=== PATIENT | male | born 1945 | race Caucasian/White ===

== ENCOUNTER 2018-07-18 07:46 | Emergency (ER) | payer MEDICARE, OTHER ==
[2018-07-18 08:22] VITALS: BP 141/67
--- NOTE | 2018-07-18 09:09 | ED ---
Lower Extremity - HPI Summary HPI Summary: 72 yr old male with the complaint of stubbed left great toe on stairs, and nail fell off. He states he had a fungal infection in the toenail and that it was not very well rooted anymore and that it was coming off to begin with. He has no other complaints. - History of Current Complaint Chief Complaint: UCLowerExtremity Stated Complaint: LEFT GREAT TOENAIL CONCERN Time Seen by Provider: 07/18/18 08:27 Pain Intensity: 3 - Allergies/Home Medications Allergies/Adverse Reactions: Allergies Allergy/AdvReac Type Severity Reaction Status Date / Time MS Influenza Virus Vaccine Allergy Severe Patient Verified 07/18/18 08:06 H5N1 states " I [Influenza Virus Vaccine just get H5N1] sick." pneumonia vaccine Allergy Congestion Uncoded 07/18/18 08:06 Home Medications: Home Medications Ascorbic Acid TAB* [Vitamin C TAB*] 500 mg PO DAILY 07/18/18 [History Confirmed 07/18/18] Carboxymethylcellulos 1% OPTH* [Celluvisc 1% OPTH*] 1 drop BOTH EYES QID PRN [History Confirmed 07/18/18] Cetirizine* [ZyrTEC 10 MG TAB*] 10 mg PO DAILY 07/18/18 [History Confirmed 07/18] Diclofenac 1% GEL (NF) [Voltaren 1% GEL (NF)] 1 applic TOPICAL BID PRN 07/18/18 [History Confirmed 07/18/18] FLUoxetine CAP* [PROzac CAP*] 10 mg PO DAILY 07/18/18 [History Confirmed ] Folic Acid TAB* [Folvite TAB*] 1 mg PO DAILY 07/18/18 [History Confirmed ] Ketotifen Fumarate 1 drop BOTH EYES BID 07/18/18 [History Confirmed 07/18/18] Naproxen TAB* [Naprosyn 375 mg TAB*] 375 mg PO DAILY PRN 07/18/18 [History Confirmed 07/18/18] [place]-3 Fatty Acids (Nf) [Fish Oil (NF)] 1,000 mg PO DAILY 07/18/18 [History Confirmed 07/18/18] Pantoprazole TAB (NF) [Protonix TAB (NF)] 20 mg PO QAM 07/18/18 [History Confirmed 07/18/18] Ranitidine TAB (NF) [Zantac TAB (NF)] 150 mg PO BID 07/18/18 [History Confirmed 07/18/18] Saw/Py/Net/Pumpk/Beta/Ly/Zn/Cu [Prostate Control Softgel] 1 each PO BID [History Confirmed 07/18/18] Triamcinolone Acetonide [Gnp 24 Hour Nasal Allerg] 2 spray BOTH NARES DAILY [History Confirmed 07/18/18] Vitamin THERAPEUTIC TAB* [Theragran TAB*] 1 tab PO DAILY 07/18/18 [History Confirmed 07/18/18] tiZANidine TAB* [Zanaflex TAB*] 2 mg PO BID PRN 07/18/18 [History Confirmed ] PMH/Surg Hx/FS Hx/Imm Hx - Surgical History Surgery Procedure, Year, and Place: hernia repair 1967 Infectious Disease History: No Infectious Disease History: Denies: Traveled Outside the [place] in Last 30 Days - Social History Alcohol Use: Rare Substance Use Type: Reports: None Smoking Status (MU): Former Smoker Review of Systems Constitutional: Negative Positive: Other - injury to left great toe nail All Other Systems Reviewed And Are Negative: Yes Physical Exam Triage Information Reviewed: Yes Vital Signs On Initial Exam: Initial Vitals Temp Pulse Resp BP Pulse Ox 97.8 F 64 18 141/67 98 07/18/18 08:10 07/18/18 08:10 07/18/18 08:10 07/18/18 08:10 07/18/18 08:10 Vital Signs Reviewed: Yes Appearance: Positive: Well-Appearing, No Pain Distress Skin: Positive: Warm, Skin Color Reflects Adequate Perfusion Head/Face: Positive: Normal Head/Face Inspection Eyes: Positive: EOMI Neck: Positive: Nontender Respiratory/Lung Sounds: Positive: Clear to Auscultation Cardiovascular: Positive: Pulses are Symmetrical in both Upper and Lower Extremities Abdomen Description: Negative: Distended Musculoskeletal: Positive: Strength/ROM Intact, Other - left great toe with nail off. Neurological: Positive: Sensory/Motor Intact, Alert, Oriented to Person Place, Time, CN Intact II-III Psychiatric: Positive: Normal Diagnostics - Vital Signs Vital Signs Temp Pulse Resp BP Pulse Ox 07/18/18 08:10 97.8 F 64 18 141/67 98 - Laboratory Lab Statement: Any lab studies that have been ordered have been reviewed, and results considered in the medical decision making process. - Radiology left great toe Radiology Interpretation Completed By: Radiologist - no acute fracture Lower Extremity Course/Dx - Course Course Of Treatment: The nail bed area was cleaned with warm soap and hibiclens. dressing applied. - Diagnoses Provider Diagnoses: Nail avulsion of toe, Hypertension Discharge - Sign-Out/Discharge Documenting (check all that apply): Patient Departure All imaging exams completed and their final reports reviewed: Yes - Discharge Plan Condition: Good Disposition: HOME Patient Education Materials: Nail Avulsion (ED), Hypertension (ED) Referrals: Omid Rubio MD [Primary Care Provider] - 2 Days - Billing Disposition and Condition Condition: GOOD Disposition: Home
== END 2018-07-18 09:28 | disposition home or self-care (01) ==
LOC: UCCORT 07:46
DX: S91.202A Unspecified open wound of left great toe with damage to nail, initial encounter (principal); I10 Essential (primary) hypertension; Z88.7 Allergy status to serum and vaccine; Z87.891 Personal history of nicotine dependence; W22.8XXA Striking against or struck by other objects, initial encounter; Y92.9 Unspecified place or not applicable
CPT/HCPCS: 99213; G0463